=== PATIENT | female | born 1945 | race Caucasian/White ===

== ENCOUNTER → 2017-06-01 | Outpatient (CLI) | payer OTHER | END | disposition home or self-care (01) | LOC: MAMMO 00:45 → RAD 13:00 | DX: Z12.31 Encounter for screening mammogram for malignant neoplasm of breast (principal); Z13.820 Encounter for screening for osteoporosis; Z78.0 Asymptomatic menopausal state ==

== ENCOUNTER → 2017-12-20 | Outpatient (CLI) | payer OTHER | END | disposition home or self-care (01) | LOC: LAB 08:12 | DX: D64.9 Anemia, unspecified (principal) ==

== ENCOUNTER → 2017-12-21 | Outpatient (CLI) | payer OTHER ==
[2017-12-21 09:40] LABS: IRON 19 ug/dL (50-170); TOTAL IRON BINDING CAPACITY 497 ug/dl (250-450)
== END | disposition home or self-care (01) ==
LOC: LAB 08:12
PROVIDERS: Internal Medicine
DX: D64.9 Anemia, unspecified (principal)

== ENCOUNTER → 2017-12-25 | Outpatient (CLI) | payer OTHER ==
--- NOTE | ~2017-12-25 | HM ---
[place], [place] HOLTER MONITOR REPORT [id number] UNIT #: [id number] ROOM: DOCTOR: KATHRYN LAND MD BIRTHDATE: [birth year] DOS: 12/27/2017 A 48-HOUR HOLTER MONITOR REFERRED BY: Dr. Jade. The study was recorded from 12/25/2017 through 12/27/2017. The recording was analyzed, interpreted and dictated on 12/27/2017. INDICATION: Palpitations. FINDINGS: The patient's rhythm was recorded utilizing a Holter device for 48 hours. The basic rhythm was sinus. Average heart rate was 91. Heart rates varied from 63 beats per minute to 167 beats per minute. The high rates were recorded while the patient was cutting grass. Only 1 premature ventricular contraction was recorded in 48 hours. There was no ventricular tachycardia. Very rare premature atrial contractions were recorded. There was no SVT or prolonged pause seen. The patient did experience significant sinus tachycardia while she was exercising cutting grass. IMPRESSION: Sinus rhythm with a relatively high average heart rate of 91 beats per minute. The patient's heart rate response to exercise was excessive with a heart rate of 167 recorded while she was cutting grass. No significant arrhythmias were seen, however. KATHRYN LAND MD CM:HOLTER:HOLTER MONITOR REPORT [id number] KATHRYN LAND MD
== END ==
LOC: CARD 13:58
DX: R00.2 Palpitations (principal)

== ENCOUNTER → 2018-11-29 | Outpatient (CLI) | payer OTHER ==
[~2018-11-29] MED LIST: CALCIUM 600 +1 EA10 PO; FEROSUL325 MG PO; LISINOPRIL30 MG PO; LOW DOSE ASPIRI81 MG PO; SIMVASTATIN20 MG PO; SUNMARK OMEPRAZ20 M1 PO
== END | disposition home or self-care (01) ==
LOC: MAMMO 11-27 15:40
DX: Z12.31 Encounter for screening mammogram for malignant neoplasm of breast (principal)

== ENCOUNTER → 2019-01-23 | Day surgery (SDC) | payer OTHER ==
[~2019-01-23] VITALS: Ht 156.2 cm; Wt 77.1 kg
--- NOTE | ~2019-01-23 | O ---
[place], [place] OPERATIVE NOTE NAME: [id number] UNIT #: [id number] ROOM: DOCTOR: JENNIFER WATTS MD BIRTHDATE: [birth year] DOS: 01/23/2019 PREOPERATIVE DIAGNOSIS: Cataract, left eye. POSTOPERATIVE DIAGNOSIS: Cataract, left eye. OPERATION: Extracapsular cataract extraction by phacoemulsification with posterior chamber intraocular lens implantation, left eye. ANESTHESIA: Monitored standby. OPERATIVE FINDINGS AND PROCEDURE: 2% Xylocaine topical anesthetic gel was applied to the eye in the preop area. The patient was taken to the operating room and prepped and draped in the standard fashion for sterile intraocular surgery. A time out procedure was performed verifying correct patient, correct site and corrects lens with Jean Watts M.D. The operating microscope was swung into position and the lid speculum was inserted. Using a Bella paracentesis blade, a paracentesis was made through clear cornea. Sugarcaine, mixture of lidocaine and epinephrine, was injected into the anterior chamber. Viscoelastic was then instilled into the anterior chamber. Viscoelastic was used to fill the anterior chamber. Using a metal keratome a 2.4 mm self-sealing clear corneal cataract incision was made temporally at the limbus. Using a pre-bent 25 gauge cystotome needle, a standard continuous curvilinear capsulorrhexis was performed. The anterior capsule was removed with forceps. The lens nucleus was hydrodissected and phacoemulsified in the posterior chamber. Cortical material was removed with the irrigation aspiration hand piece and the posterior capsule was then polished with a curet under irrigation. The posterior chamber and capsular bag were filled with viscoelastic. A posterior chamber intraocular lens manufactured by: [employer], Model #[id number], and 20.5 diopters in strength were then inserted into the posterior chamber and within the capsular bag using the lens cartridge and injector system. Viscoelastic was removed using the irrigation aspiration handpiece. The anterior chamber was filled with balanced salt solution through the paracentesis. Both the paracentesis site and cataract incisions were hydrated with BSS and verified to be water-tight and self-sealing. The incision checked to be water-tight using a Weck-Genie sponge. The integrity of the cataract wound and ocular tension were checked. Lid speculum and drapes were removed. The patient was transferred from the operating room to the recovery room in satisfactory condition. [place], [place] OPERATIVE NOTE NAME: COLT CRUZ UNIT #: [id number] ROOM: DOCTOR: JENNIFER WATTS MD BIRTHDATE: [birth year] JENNIFER WATTS MD CM:OPRECORD:OPERATIVE NOTE 1304 [id number] JENNIFER WATTS MD 01/23/19 1550 interface
[2019-01-23 12:25] VITALS: BP 155/74
[2019-01-23 13:00] VITALS: BP 149/66
[2019-01-23 13:15] VITALS: BP 151/82
[2019-01-23 13:34] VITALS: BP 151/82
== END | disposition home or self-care (01) ==
LOC: SDC 01-18 08:00
DX: H25.812 Combined forms of age-related cataract, left eye (principal); I10 Essential (primary) hypertension; E78.5 Hyperlipidemia, unspecified; M19.90 Unspecified osteoarthritis, unspecified site; Z88.0 Allergy status to penicillin; Z88.2 Allergy status to sulfonamides; Z79.899 Other long term (current) drug therapy; Z98.41 Cataract extraction status, right eye; Z96.1 Presence of intraocular lens; Z98.890 Other specified postprocedural states; Z72.89 Other problems related to lifestyle; Z83.3 Family history of diabetes mellitus

== ENCOUNTER → 2020-02-14 | Outpatient (CLI) | payer OTHER | END | disposition home or self-care (01) | LOC: RAD 08:41 | DX: M81.0 Age-related osteoporosis without current pathological fracture (principal) ==

== ENCOUNTER → 2021-06-09 | Outpatient (CLI) | payer OTHER | END | disposition home or self-care (01) | LOC: MAMMO 00:08 | PROVIDERS: ATTEND Nurse Practitioner Primary Care | DX: Z12.31 Encounter for screening mammogram for malignant neoplasm of breast (principal) ==

== ENCOUNTER → 2022-10-03 | Outpatient (CLI) | payer OTHER | END | disposition home or self-care (01) | LOC: MAMMO 00:42 | PROVIDERS: ATTEND Internal Medicine | DX: Z12.31 Encounter for screening mammogram for malignant neoplasm of breast (principal); M81.0 Age-related osteoporosis without current pathological fracture ==

== ENCOUNTER → 2023-01-26 | Outpatient (CLI) | payer OTHER | END | disposition home or self-care (01) | LOC: RAD 10:48 | PROVIDERS: ATTEND Internal Medicine | DX: Z01.818 Encounter for other preprocedural examination (principal); K44.9 Diaphragmatic hernia without obstruction or gangrene ==

== ENCOUNTER → 2024-01-04 | Outpatient (CLI) | payer MEDICARE | END | disposition home or self-care (01) | LOC: US 00:26 | PROVIDERS: ATTEND Nurse Practitioner Primary Care | DX: I65.23 Occlusion and stenosis of bilateral carotid arteries (principal); I10 Essential (primary) hypertension ==

== ENCOUNTER → 2024-02-09 | Outpatient (CLI) | payer MEDICARE | END | disposition home or self-care (01) | LOC: US 01:48 | PROVIDERS: ATTEND Nurse Practitioner Primary Care | DX: E04.2 Nontoxic multinodular goiter (principal) ==